=== PATIENT | male | born 1965 ===

== ENCOUNTER 2018-06-01 14:48 | Inpatient (IN) | payer OTHER, BC ==
[2018-06-01] MEDS ORDERED: Sodium Chloride 0.9% 1,000 ML IV STA (16:28)
[2018-06-01] MEDS ORDERED: Iohexol 240 (50 ml) PO STA (16:28)
[2018-06-01 16:47] LABS: BASO % 0.8 % (0.0-2.0); HEMOGLOBIN 14.1 g/dL (12.0-18.0); LYMPH # 0.9 K/uL (1.0-4.3); LYMPH % 27.3 % (20.0-40.0); MEAN CELL VOLUME 86.8 fL (80.0-94.0); MEAN CORPUSCULAR HEMOGLOBIN 29.5 pg (27.0-31.0); MEAN PLATELET VOLUME 9.8 fL (7.2-11.7); MONO # 0.4 K/uL (0.0-0.8); MONO % 10.9 % (0.0-10.0); NRBC % 0.1 % (0.0-2.0); RBC 4.8 Mil/uL (4.40-5.90); RED CELL DISTRIBUTION WIDTH 13.6 % (11.5-14.5); WHITE BLOOD COUNT 3.3 K/uL (4.8-10.8)
[2018-06-01] MEDS ORDERED: Sodium Chloride 0.9% 1,000 ML ONE (16:49)
[2018-06-01] MEDS ORDERED: Iohexol 240 (50 ml) ONE (16:49)
[2018-06-01 16:51] LABS: SQUAMOUS EPITHIAL < 1 /hpf (0-5); URINE BILIRUBIN NEGATIVE (NEGATIVE); URINE BLOOD 1+ (NEGATIVE); URINE CLARITY Clear (Clear); URINE COLOR Yellow (YELLOW); URINE GLUCOSE (UA) NORMAL (Normal); URINE LEUKOCYTE ESTERASE NEG Leu/uL (Negative); URINE PROTEIN 2+ mg/dL (NEGATIVE); URINE UROBILINOGEN NORMAL mg/dL (0.2-1.0)
[2018-06-01 16:56] LABS: INR 1.1
[2018-06-01] MEDS ORDERED: Iohexol 300 100 ML IJ ONE (16:57)
[2018-06-01 17:01] LABS: ALB/GLOB RATIO 1.4 (1.0-2.1); ALBUMIN 4.1 g/dL (3.5-5.0); ALT/SGPT 19 U/L (21-72); AST/SGOT 29 U/L (17-59); BLOOD UREA NITROGEN 20 mg/dL (9-20); CALCIUM 8.3 mg/dl (8.6-10.4); GFR NON-AFRICAN AMERICAN > 60; LIPASE 148 U/L (23-300)
--- NOTE | 2018-06-01 18:07 | C.PDOC ---
History Of Present Illness 52 y/o male presents to the ER complaining of LLQ abdominal pain which has been present for the past few days. Patient states that he has associated diarrhea and fever. Patient states that she was evaluated by her PMD . Dr. Pretty referred her to the ER. Denies having nausea, vomiting, dysuria and hematuria. Time Seen by Provider: 06/01/18 15:52 Chief Complaint (Nursing): Fever History Per: Patient History/Exam Limitations: no limitations Onset/Duration Of Symptoms: Days Current Symptoms Are (Timing): Still Present Severity: Moderate Past Medical History Reviewed: Historical Data, Nursing Documentation, Vital Signs Vital Signs: Last Vital Signs Temp 98.3 F 06/01/18 17:33 Pulse 92 H 06/01/18 17:33 Resp 18 06/01/18 17:33 BP 118/76 06/01/18 17:33 Pulse Ox 97 06/01/18 17:33 - Medical History PMH: Gastritis, Hypercholesterolemia Other Surgeries: Hx of surgeries Family History: States: No Known Family Hx - Social History Hx Alcohol Use: Yes Hx Substance Use: No - Immunization History Hx Tetanus Toxoid Vaccination: No Hx Influenza Vaccination: No Hx Pneumococcal Vaccination: No Review Of Systems Except As Marked, All Systems Reviewed And Found Negative. Constitutional: Positive for: Fever. Negative for: Chills Gastrointestinal: Positive for: Abdominal Pain, Diarrhea. Negative for: Nausea, Vomiting Physical Exam - Physical Exam Appears: Non-toxic, No Acute Distress Skin: Normal Color, Warm, Dry Head: Atraumatic, Normacephalic Eye(s): bilateral: Normal Inspection Nose: Normal Oral Mucosa: Moist Neck: Supple Chest: Symmetrical Cardiovascular: Rhythm Regular Respiratory: Normal Breath Sounds, No Rales, No Rhonchi, No Wheezing Gastrointestinal/Abdominal: Soft, Tenderness (LLQ tenderness, mild RUQ tenderness), No Guarding, No Rebound Neurological/Psych: Oriented x3, Normal Speech ED Course And Treatment - Laboratory Results Result Diagrams: 06/01/18 16:43 06/01/18 16:43 Lab Results: PT 12.0 SECONDS (9.7-12.2) 06/01/18 16:43 INR 1.1 06/01/18 16:43 APTT 29 SECONDS (21-34) 06/01/18 16:43 Total Bilirubin 0.6 mg/dL (0.2-1.3) 06/01/18 16:43 AST 29 U/L (17-59) 06/01/18 16:43 ALT 19 U/L (21-72) L 06/01/18 16:43 Alkaline Phosphatase 55 U/L (38-126) 06/01/18 16:43 Total Protein 7.1 g/dL (6.3-8.3) 06/01/18 16:43 Albumin 4.1 g/dL (3.5-5.0) 06/01/18 16:43 Globulin 3.0 gm/dL (2.2-3.9) 06/01/18 16:43 Albumin/Globulin Ratio 1.4 (1.0-2.1) 06/01/18 16:43 Lipase 148 U/L (23-300) 06/01/18 16:43 Urine Color Yellow (YELLOW) 06/01/18 16:43 Urine Clarity Clear (Clear) 06/01/18 16:43 Urine pH 5.0 (5.0-8.0) 06/01/18 16:43 Ur Specific [place] 1.030 (1.003-1.030) 06/01/18 16:43 Urine Protein 2+ mg/dL (NEGATIVE) H 06/01/18 16:43 Urine Glucose (UA) Normal mg/dL (Normal) 06/01/18 16:43 Urine Ketones Trace mg/dL (NEGATIVE) 06/01/18 16:43 Urine Blood 1+ (NEGATIVE) H 06/01/18 16:43 Urine Nitrate Negative (NEGATIVE) 06/01/18 16:43 Urine Bilirubin Negative (NEGATIVE) 06/01/18 16:43 Urine Urobilinogen Normal mg/dL (0.2-1.0) 06/01/18 16:43 Ur Leukocyte Esterase Neg Alexus/uL (Negative) 06/01/18 16:43 Urine WBC (Auto) 1 /hpf (0-5) 06/01/18 16:43 Urine RBC (Auto) 1 /hpf (0-3) 06/01/18 16:43 Ur Squamous Epith Cells < 1 /hpf (0-5) 06/01/18 16:43 O2 Sat by Pulse Oximetry: 97 (RA) Pulse Ox Interpretation: Normal - CT Scan/US CT abdomen/pelvis Other Rad Studies (CT/US): Read By Radiologist, Radiology Report Reviewed CT/US Interpretation: Accession No. : [id number]. Patient Name / ID : FREDRICK YEE / [id number]. Exam Date : 06/01/2018 18:02:12 ( Approved ). Study Comment : Sex / Age : M / 52Y. Creator : Mary Gimenez MD. Dictator : Mary Gimenez MD. Field Laboratory Operator : Van Cdl Driver : Mary Gimenez MD. Approver2 : Report Date : 06/01/2018 18:36:18. My Comment : . This report is currently processing and HAS NOT BEEN OFFICIALLY SIGNED BY THE PHYSICIAN - ESTIMATED TIME OF APPROVAL IS 06/01/2018 18:41. PROCEDURE: CT Abdomen and Pelvis with oral and IV contrast. HISTORY: LLQ abd pain, fever, N/V/D. COMPARISON: None available. TECHNIQUE: Contiguous axial images of the abdomen and pelvis. Oral and IV contrast was administered. Coronal and Sagittal reformats generated and reviewed. Contrast dose: 100 mL Omnipaque 300 IV. Radiation dose: Total exam DLP = 1027.41 mGy-cm. This CT exam was performed using one or more of the following dose reduction techniques: Automated exposure control, adjustment of the mA and/or kV according to patient size, and/or use of iterative reconstruction technique. FINDINGS: LOWER THORAX: Bibasilar atelectasis. No visible pleural effusion or pneumothorax. There are two 3 mm right middle lobe nodules. LIVER: Unremarkable. No gross lesion or ductal dilatation. GAL LBLADDER AND BILE DUCTS: Unremarkable. PANCREAS: Unremarkable. SPLEEN: Unremarkable. ADRENALS: Unremarkable. KIDNEYS AND URETERS: The kidneys enhance symmetrically. No hydronephrosis or obstructing renal calculus. BLADDER: The urinary bladder appears unremarkable. REPRODUCTIVE: Unremark able. APPENDIX: The appendix appears within normal limits of caliber. Contrast and air noted within the appendiceal lumen. No secondary signs of acute appendicitis. BOWEL: The stomach is nondistended. Severe diffuse colonic wall thickening appears consistent with hutchinson colitis. No evidence of bowel obstruction. PERITONEUM: Small pelvic free fluid. No definite free air. LYMPH NODES: No bulky lymphadenopathy identified. VASCULATURE: No aortic aneurysm. No atherosclerotic calcification or mural plaque present. BONES: Mild degenerative changes. OTHER FINDINGS: Small fat containing umbilical hernia. IMPRESSION: Severe diffuse colonic wall thickening appears consistent with hutchinson colitis. Small pelvic free fluid. There are two 3 mm right middle lobe pulmonary nodules. According to the 2017 Fleischner criteria, the patient is low risk, no routine follow-up is recommended. If the patient is high risk, and optional CT at 12 months is recommended. Progress Note: Labs, UA, and CT- Abd & Pelv. have been ordered. Patient treated with Protonix IV, Zofran IV, and IV Fluids. CT is positive for hutchinson colitis. Cipro and Flagyl IV started. Case was d/w Merlin who covers for pt's PMD accepted patient to [facility] for an admission. Disposition - Disposition Disposition: HOSPITALIZED Disposition Time: 19:00 Condition: FAIR Forms: griddig (Welsh) - Clinical Impression Clinical Impression: Pancolitis - PA / CARGO ROUTER / Resident Statement MD/DO has reviewed & agrees with the documentation as recorded. - Scribe Statement The provider has reviewed the documentation as recorded by the Scribe Valeriano Horner Provider Attestation All medical record entries made by the Scribe were at my direction and personally dictated by me. I have reviewed the chart and agree that the record accurately reflects my personal performance of the history, physical exam, medical decision making, and the department course for this patient. I have also personally directed, reviewed, and agree with the discharge instructions and disposition. Decision To Admit - Pt Status Changed To: Hospital Disposition Of: Inpatient - Admit Certification Admit to Inpatient:: After my assessment, the patient will require hospitalization for at least two midnights. This is because of the severity of symptoms shown, intensity of services needed, and/or the medical risk in this patient being treated as an outpatient. - InPatient: Physician Admission Certification:: Patient will need more than 2 days of IV antibiotics - . Bed Request Type: Regular Admitting Physician: Dot Oates Patient Diagnosis: Pancolitis
--- NOTE | 2018-06-01 18:39 | CT ---
PROCEDURE: CT Abdomen and Pelvis with oral and IV contrast. HISTORY: LLQ abd pain, fever, N/V/D COMPARISON: None available TECHNIQUE: Contiguous axial images of the abdomen and pelvis. Oral and IV contrast was administered. Coronal and Sagittal reformats generated and reviewed. Contrast dose: 100 mL Omnipaque 300 IV Radiation dose: Total exam DLP = 1027.41 mGy-cm. This CT exam was performed using one or more of the following dose reduction techniques: Automated exposure control, adjustment of the mA and/or kV according to patient size, and/or use of iterative reconstruction technique. FINDINGS: LOWER THORAX: Bibasilar atelectasis. No visible pleural effusion or pneumothorax. There are two 3 mm right middle lobe nodules LIVER: Unremarkable. No gross lesion or ductal dilatation. GALLBLADDER AND BILE DUCTS: Unremarkable. PANCREAS: Unremarkable. SPLEEN: Unremarkable. ADRENALS: Unremarkable. KIDNEYS AND URETERS: The kidneys enhance symmetrically. No hydronephrosis or obstructing renal calculus. BLADDER: The urinary bladder appears unremarkable. REPRODUCTIVE: Unremarkable. APPENDIX: The appendix appears within normal limits of caliber. Contrast and air noted within the appendiceal lumen. No secondary signs of acute appendicitis. BOWEL: The stomach is nondistended. Severe diffuse colonic wall thickening appears consistent with hutchinson colitis. No evidence of bowel obstruction. PERITONEUM: Small pelvic free fluid. No definite free air. LYMPH NODES: No bulky lymphadenopathy identified. VASCULATURE: No aortic aneurysm. No atherosclerotic calcification or mural plaque present. BONES: Mild degenerative changes. OTHER FINDINGS: Small fat containing umbilical hernia. IMPRESSION: Severe diffuse colonic wall thickening appears consistent with hutchinson colitis. Small pelvic free fluid. There are two 3 mm right middle lobe pulmonary nodules. According to the 2017 Fleischner criteria, the patient is low risk, no routine follow-up is recommended. If the patient is high risk, and optional CT at 12 months is recommended.
[2018-06-01] MEDS ORDERED: Ciprofloxacin 400mg/200ml D5W 400 MG/200 ML BAG IV STA (18:47)
[2018-06-01] MEDS ORDERED: metroNIDAZOLE IV 500 mg/100 ml 500 MG/100 ML BAG IV SCH (19:00)
[2018-06-01 20:10] VITALS: RESP 20
--- NOTE | 2018-06-01 20:35 | CP.PCM.HP ---
Past Patient History - Past Social History Smoking Status: Never Smoked - CARDIAC Hx Hypercholesterolemia: Yes - ENDOCRINE/METABOLIC Hx Endocrine Disorders: Yes Hx Diabetes Mellitus Type 2: Yes - GASTROINTESTINAL Hx Gastritis: Yes - PSYCHIATRIC Hx Substance Use: No - SURGICAL HISTORY Hx Surgeries: Yes Other/Comment: HEMORRHOIDECTOMY Meds Allergies/Adverse Reactions: Allergies Allergy/AdvReac Type Severity Reaction Status Date / Time No Known Allergies Allergy Verified 06/01/18 14:59 Results - Vital Signs Recent Vital Signs: Last Vital Signs Temp 98.3 F 06/01/18 20:09 Pulse 88 06/01/18 20:09 Resp 20 06/01/18 20:09 BP 127/81 06/01/18 20:09 Pulse Ox 96 06/01/18 20:09 - Labs Result Diagrams: 06/01/18 16:43 06/01/18 16:43 Labs: Laboratory Results - last 24 hr 06/01/18 06/01/18 06/01/18 16:43 16:43 16:43 WBC 3.3 L RBC 4.80 Hgb 14.1 Hct 41.6 MCV 86.8 MCH 29.5 MCHC 34.0 RDW 13.6 Plt Count 101 L MPV 9.8 Neut % (Auto) 61.0 Lymph % (Auto) 27.3 Coles % (Auto) 10.9 H Eos % (Auto) 0.0 Baso % (Auto) 0.8 Neut # (Auto) 2.0 Lymph # (Auto) 0.9 L [place]es # (Auto) 0.4 Eos # (Auto) 0.0 Baso # (Auto) 0.0 Differential Comment PT 12.0 INR 1.1 APTT 29 Sodium Potassium Chloride Carbon Dioxide Anion Gap BUN Creatinine Est GFR ( Amer) Est GFR (Non-Af Amer) Random Glucose Calcium Total Bilirubin AST ALT Alkaline Phosphatase Total Protein Albumin Globulin Albumin/Globulin Ratio Lipase Urine Color Yellow Urine Clarity Clear Urine pH 5.0 Ur Specific [place] 1.030 Urine Protein 2+ H Urine Glucose (UA) Normal Urine Ketones Trace Urine Blood 1+ H Urine Nitrate Negative Urine Bilirubin Negative Urine Urobilinogen Normal Ur Leukocyte Esterase Neg Urine WBC (Auto) 1 Urine RBC (Auto) 1 Ur Squamous Epith Cells < 1 06/01/18 16:43 WBC RBC Hgb Hct MCV MCH MCHC RDW Plt Count MPV Neut % (Auto) Lymph % (Auto) [place] % (Auto) Eos % (Auto) Baso % (Auto) Neut # (Auto) Lymph # (Auto) [place]es # (Auto) Eos # (Auto) Baso # (Auto) Differential Comment PT INR APTT Sodium 136 Potassium 3.3 L Chloride 97 L Carbon Dioxide 27 Anion Gap 14 BUN 20 Creatinine 0.7 L Est GFR ( Amer) > 60 Est GFR (Non-Af Amer) > 60 Random Glucose 209 H Calcium 8.3 L Total Bilirubin 0.6 AST 29 ALT 19 L Alkaline Phosphatase 55 Total Protein 7.1 Albumin 4.1 Globulin 3.0 Albumin/Globulin Ratio 1.4 Lipase 148 Urine Color Urine Clarity Urine pH Ur Specific [place] Urine Protein Urine Glucose (UA) Urine Ketones Urine Blood Urine Nitrate Urine Bilirubin Urine Urobilinogen Ur Leukocyte Esterase Urine WBC (Auto) Urine RBC (Auto) Ur Squamous Epith Cells Assessment & Plan - Assessment and Plan (Free Text) Plan: ID consult GI consult IV metronidazole IV Cipro IV Protonix Fingerstick As ordered ivfluid
[2018-06-01] MEDS ORDERED: Ciprofloxacin 200mg/100ml D5W 100 ML IVPB SCH (20:45)
[2018-06-01] MEDS: Sodium Chloride 0.9% 1,000 ML IV SCH (21:48)
[2018-06-02] MEDS: Sodium Chloride 0.9% 1,000 ML IV SCH ×4 (06:25→21:55)
[2018-06-02] MEDS: Potassium Chloride 20 mEq ER Tab PO SCH (07:56)
--- NOTE | 2018-06-02 08:30 | CP.PCM.CON ---
<Yonis Whatley - Last Filed: 06/02/18 08:27> History of Present Illness - History of Present Illness History of Present Illness: GI Fellow PGY4, Consult note. Sha Jacob is a very pleasant 52M presenting with fever, abdominal pain and diarrhea. He stated the abdominal pain and fever started 4 days ago, on Thursday. He has been afebrile since admission to the hospital. The abdominal pain is diffuse, moderate, intermittent. There is no obvious relieving or triggering features. He denies eating undercooked foods, recent travel. 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 Importantly, he reports the diarrhea has been present for ~3 months. He has 5-6 BMs per day and awakes 2-3x per night to use the bathroom. The stool is black to yellow. He denies any blood. He has had ~30lb weight loss in the last 6 months. Denies related family history of inflammatory disease. Denies rash, joint pain, oral ulers, eye problems. CT and labs reviewed. Significant for pancolitis, thrombocytopenia, low WBC. He was placed on cipro/flagyl at admission. PMHx - DM, HLD, HTN, GERD PSHx - Colonoscopy in 2018, reportedly normal. EGD ~5yrs ago. FmHx -Father from suspected stomach cancer. Sister has LOCAL [employer]ER TRUCK [employer]IVER cancer. SocHx - Denies tobacco. Drinks alcohol once per week. . 12pt ROS completed and negative except for above. Past Patient History - Past Medical History & Family History Past Medical History?: Yes - Past Social History Smoking Status: Never Smoked - CARDIAC Hx Hypercholesterolemia: Yes - PULMONARY Hx Respiratory Disorders: No - NEUROLOGICAL Hx Neurological Disorder: No - HEENT Hx HEENT Problems: No - RENAL Hx Chronic Kidney Disease: No Hx Dialysis: No - ENDOCRINE/METABOLIC Hx Endocrine Disorders: Yes Hx Diabetes Mellitus Type 2: Yes - HEMATOLOGICAL/ONCOLOGICAL Hx Blood Disorders: No - INTEGUMENTARY Hx Dermatological Problems: No - MUSCULOSKELETAL/RHEUMATOLOGICAL Hx Musculoskeletal Disorders: No Hx Falls: No - GASTROINTESTINAL Hx Gastrointestinal Disorders: Yes Hx Colitis: Yes Hx Gastritis: Yes - PSYCHIATRIC Hx Substance Use: No - SURGICAL HISTORY Hx Surgeries: Yes Other/Comment: HEMORRHOIDECTOMY - ANESTHESIA Hx Anesthesia: Yes Hx Anesthesia Reactions: No Hx Malignant Hyperthermia: No Has any member of the family had a problem w/ anesthesia?: No Meds Allergies/Adverse Reactions: Allergies Allergy/AdvReac Type Severity Reaction Status Date / Time No Known Allergies Allergy Verified 06/01/18 14:59 - Medications Medications: Current Medications Acetaminophen (Tylenol 325mg Tab) 650 mg PO Q8 PRN PRN Reason: Pain Last Admin: 06/01/18 22:37 Dose: 650 mg Glipizide (Glucotrol Xl) 10 mg PO DAILY [facility] Metronidazole (Flagyl) 500 mg in 100 mls @ 100 mls/hr IV STAT ROBERT; Protocol Ciprofloxacin (Cipro 200mg/100ml D5w) 100 mls @ 67 mls/hr IVPB Q12H ROBERT; Protocol Last Admin: 06/01/18 21:41 Dose: Not Given Sodium Chloride (Sodium Chloride 0.9%) 1,000 mls @ 100 mls/hr IV .Q10H [facility] Last Admin: 06/01/18 21:48 Dose: 100 mls/hr Influenza Virus Vaccine (Flucelvax Quad 3119-8721 Syr) 60 mcg IM .ONCE ONE Stop: 06/04/18 10:01 [id number] Ethyl Esters (Lovaza) 1 gm PO DAILY [facility] Pantoprazole Sodium (Protonix Inj) 40 mg IVP DAILY [facility] Pneumococcal Polyvalent Vaccine (Pneumovax 23 Vaccine) 0.5 ml IM .ONCE ONE Stop: 06/04/18 10:01 Potassium Chloride (K-Dur 20 Meq Er Tab) 40 meq PO BRK [facility] Last Admin: 06/02/18 07:56 Dose: 40 meq Physical Exam - Constitutional Appears: Non-toxic, No Acute Distress - Head Exam Head Exam: ATRAUMATIC, NORMAL INSPECTION - Eye Exam Eye Exam: EOMI, Normal appearance - ENT Exam ENT Exam: Mucous Membranes Moist, Normal Exam - Respiratory Exam Respiratory Exam: Clear to Auscultation Bilateral, NORMAL BREATHING PATTERN - Cardiovascular Exam Cardiovascular Exam: REGULAR RHYTHM, +S1, +S2 - GI/Abdominal Exam GI & Abdominal Exam: Normal Bowel Sounds, Soft, Tenderness. absent: Distended, Firm, Guarding, Organomegaly - Rectal Exam Rectal Exam: Deferred - Extremities Exam Extremities exam: Positive for: normal inspection. Negative for: pedal edema - Neurological Exam Neurological exam: Alert, CN II-XII Intact, Oriented x3 - Psychiatric Exam Psychiatric exam: Normal Affect, Normal Mood - Skin Skin Exam: Normal Color, Warm Results - Vital Signs Recent Vital Signs: Last Vital Signs Temp 98.2 F 06/02/18 07:59 Pulse 73 06/02/18 07:59 Resp 20 06/02/18 07:59 BP 114/74 06/02/18 07:59 Pulse Ox 97 06/02/18 07:59 - Labs Result Diagrams: 06/01/18 16:43 06/01/18 16:43 Labs: Laboratory Results - last 24 hr 06/01/18 06/01/18 06/01/18 16:43 16:43 16:43 WBC 3.3 L RBC 4.80 Hgb 14.1 Hct 41.6 MCV 86.8 MCH 29.5 MCHC 34.0 RDW 13.6 Plt Count 101 L MPV 9.8 Neut % (Auto) 61.0 Lymph % (Auto) 27.3 [place] % (Auto) 10.9 H Eos % (Auto) 0.0 Baso % (Auto) 0.8 Neut # (Auto) 2.0 Lymph # (Auto) 0.9 L [place] # (Auto) 0.4 Eos # (Auto) 0.0 Baso # (Auto) 0.0 Differential Comment PT 12.0 INR 1.1 APTT 29 Sodium Potassium Chloride Carbon Dioxide Anion Gap BUN Creatinine Est GFR ( Amer) Est GFR (Non-Af Amer) POC Glucose (mg/dL) Random Glucose Calcium Total Bilirubin AST ALT Alkaline Phosphatase Total Protein Albumin Globulin Albumin/Globulin Ratio Lipase Urine Color Yellow Urine Clarity Clear Urine pH 5.0 Ur Specific [place] 1.030 Urine Protein 2+ H Urine Glucose (UA) Normal Urine Ketones Trace Urine Blood 1+ H Urine Nitrate Negative Urine Bilirubin Negative Urine Urobilinogen Normal Ur Leukocyte Esterase Neg Urine WBC (Auto) 1 Urine RBC (Auto) 1 Ur Squamous Epith Cells < 1 06/01/18 06/01/18 06/02/18 16:43 21:45 07:23 WBC RBC Hgb Hct MCV MCH MCHC RDW Plt Count MPV Neut % (Auto) Lymph % (Auto) [place] % (Auto) Eos % (Auto) Baso % (Auto) Neut # (Auto) Lymph # (Auto) [place] # (Auto) Eos # (Auto) Baso # (Auto) Differential Comment PT INR APTT Sodium 136 Potassium 3.3 L Chloride 97 L Carbon Dioxide 27 Anion Gap 14 BUN 20 Creatinine 0.7 L Est GFR ( Amer) > 60 Est GFR (Non-Af Amer) > 60 POC Glucose (mg/dL) 204 H 183 H Random Glucose 209 H Calcium 8.3 L Total Bilirubin 0.6 AST 29 ALT 19 L Alkaline Phosphatase 55 Total Protein 7.1 Albumin 4.1 Globulin 3.0 Albumin/Globulin Ratio 1.4 Lipase 148 Urine Color Urine Clarity Urine pH Ur Specific [place] Urine Protein Urine Glucose (UA) Urine Ketones Urine Blood Urine Nitrate Urine Bilirubin Urine Urobilinogen Ur Leukocyte Esterase Urine WBC (Auto) Urine RBC (Auto) Ur Squamous Epith Cells Assessment & Plan - Assessment and Plan (Free Text) Assessment: #Abdominal pain #Colitis #Chronic diarrhea #Weight loss #Thrombocytopenia #GERD #HTN,HLD,DM PLAN: -CT reviewed, remarkable for significant Colitis from rectum to right colon, plus inflammation of the duodenum. -Likely infectious vs inflammatory -Change Abx to Rorcephin and flagyl. -stool culture, O/P, C. diff -obtain records from Dr. Jefferson (GI) -PPI daily -Monitor response to treatment of possible infection, if no response, may consider flex/sig to r/o IBD. Case discussed with Dr. Ferguson, see attestation. - Date & Time Date: 06/02/18 Time: 08:37 <Sid Ferguson Y - Last Filed: 06/02/18 11:12> Meds - Medications Medications: Current Medications Acetaminophen (Tylenol 325mg Tab) 650 mg PO Q8 PRN PRN Reason: Pain Last Admin: 06/01/18 22:37 Dose: 650 mg Glipizide (Glucotrol Xl) 10 mg PO DAILY [facility]ERT Last Admin: 06/02/18 09:36 Dose: 10 mg Sodium Chloride (Sodium Chloride 0.9%) 1,000 mls @ 100 mls/hr IV .Q10H [facility]ERT Last Admin: 06/02/18 10:23 Dose: 100 mls/hr Ceftriaxone Sodium 1 gm/ (Sodium Chloride) 100 mls @ 100 mls/hr IVPB Q12H ROBERT; Protocol Last Admin: 06/02/18 10:23 Dose: 100 mls/hr Influenza Virus Vaccine (Flucelvax Quad [id number] Syr) 60 mcg IM .ONCE ONE Stop: 06/04/18 10:01 [id number] Ethyl Esters (Lovaza) 1 gm PO DAILY [facility] Last Admin: 06/02/18 09:36 Dose: 1 gm Pantoprazole Sodium (Protonix Inj) 40 mg IVP DAILY [facility] Last Admin: 06/02/18 09:38 Dose: 40 mg Pneumococcal Polyvalent Vaccine (Pneumovax 23 Vaccine) 0.5 ml IM .ONCE ONE Stop: 06/04/18 10:01 Potassium Chloride (K-Dur 20 Meq Er Tab) 40 meq PO BRK [facility] Last Admin: 06/02/18 07:56 Dose: 40 meq Results - Vital Signs Recent Vital Signs: Last Vital Signs Temp 98.2 F 06/02/18 07:59 Pulse 73 06/02/18 07:59 Resp 20 06/02/18 07:59 BP 114/74 06/02/18 07:59 Pulse Ox 97 06/02/18 07:59 - Labs Result Diagrams: 06/01/18 16:43 06/01/18 16:43 Labs: Laboratory Results - last 24 hr 06/01/18 06/01/18 06/01/18 16:43 16:43 16:43 WBC 3.3 L RBC 4.80 Hgb 14.1 Hct 41.6 MCV 86.8 MCH 29.5 MCHC 34.0 RDW 13.6 Plt Count 101 L MPV 9.8 Neut % (Auto) 61.0 Lymph % (Auto) 27.3 [place] % (Auto) 10.9 H Eos % (Auto) 0.0 Baso % (Auto) 0.8 Neut # (Auto) 2.0 Lymph # (Auto) 0.9 L [place] # (Auto) 0.4 Eos # (Auto) 0.0 Baso # (Auto) 0.0 Differential Comment PT 12.0 INR 1.1 APTT 29 Sodium Potassium Chloride Carbon Dioxide Anion Gap BUN Creatinine Est GFR ( Amer) Est GFR (Non-Af Amer) POC Glucose (mg/dL) Random Glucose Calcium Total Bilirubin AST ALT Alkaline Phosphatase Total Protein Albumin Globulin Albumin/Globulin Ratio Lipase Urine Color Yellow Urine Clarity Clear Urine pH 5.0 Ur Specific [place] 1.030 Urine Protein 2+ H Urine Glucose (UA) Normal Urine Ketones Trace Urine Blood 1+ H Urine Nitrate Negative Urine Bilirubin Negative Urine Urobilinogen Normal Ur Leukocyte Esterase Neg Urine WBC (Auto) 1 Urine RBC (Auto) 1 Ur Squamous Epith Cells < 1 06/01/18 06/01/18 06/02/18 16:43 21:45 07:23 WBC RBC Hgb Hct MCV MCH MCHC RDW Plt Count MPV Neut % (Auto) Lymph % (Auto) [place] % (Auto) Eos % (Auto) Baso % (Auto) Neut # (Auto) Lymph # (Auto) [place] # (Auto) Eos # (Auto) Baso # (Auto) Differential Comment PT INR APTT Sodium 136 Potassium 3.3 L Chloride 97 L Carbon Dioxide 27 Anion Gap 14 BUN 20 Creatinine 0.7 L Est GFR ( Amer) > 60 Est GFR (Non-Af Amer) > 60 POC Glucose (mg/dL) 204 H 183 H Random Glucose 209 H Calcium 8.3 L Total Bilirubin 0.6 AST 29 ALT 19 L Alkaline Phosphatase 55 Total Protein 7.1 Albumin 4.1 Globulin 3.0 Albumin/Globulin Ratio 1.4 Lipase 148 Urine Color Urine Clarity Urine pH Ur Specific [place] Urine Protein Urine Glucose (UA) Urine Ketones Urine Blood Urine Nitrate Urine Bilirubin Urine Urobilinogen Ur Leukocyte Esterase Urine WBC (Auto) Urine RBC (Auto) Ur Squamous Epith Cells 06/02/18 10:59 WBC RBC Hgb Hct MCV MCH MCHC RDW Plt Count MPV Neut % (Auto) Lymph % (Auto) [place] % (Auto) Eos % (Auto) Baso % (Auto) Neut # (Auto) Lymph # (Auto) [place] # (Auto) Eos # (Auto) Baso # (Auto) Differential Comment PT INR APTT Sodium Potassium Chloride Carbon Dioxide Anion Gap BUN Creatinine Est GFR ( Amer) Est GFR (Non-Af Amer) POC Glucose (mg/dL) 203 H Random Glucose Calcium Total Bilirubin AST ALT Alkaline Phosphatase Total Protein Albumin Globulin Albumin/Globulin Ratio Lipase Urine Color Urine Clarity Urine pH Ur Specific [place] Urine Protein Urine Glucose (UA) Urine Ketones Urine Blood Urine Nitrate Urine Bilirubin Urine Urobilinogen Ur Leukocyte Esterase Urine WBC (Auto) Urine RBC (Auto) Ur Squamous Epith Cells Attending/Attestation - Attestation I have personally seen and examined this patient.: Yes I have fully participated in the care of the patient.: Yes I have reviewed all pertinent clinical information: Yes Notes (Text): 06/02/18 11:07 I have seen and examined patient with GI fellow. Agree with above documentation with the following additions. In brief, this is a 52 year old male with history of DM, HTN, hyperlipiemia, GERD who presents to hospital with complaint of abdominal pain, diarrhea. He notes a chronic diarrhea for the past 3 months which has gotten worse over the past 4 days. He reports bilateral lower quadrant abdominal pain radiating to umbilicus along with subjective fever and increased frequency of bowel movements. He reports 5-6 loose bowel movements per day with occasional nocturnal awakening but denies blood in stool, recent antibiotic use, travel, or sick contacts. He does report a nearly 30 pound weight loss over the past 6 months. He apparently had a colonoscopy in February [address] Jefferson which was normal as per patient. DM/HTN Hyperlipidemia GERD Abdominal pain, diarrhea - acute colitis CT imaging reviewed by me showing pancolitis of unclear etiology - Liquid diet as tolerated - Obtain stool studies (culture, O/P, c-difficile) - Continue with antibiotic therapy, though recommend changing cipro to ceftriaxone given severity of disease - Obtain colonoscopy report from Dr. Jefferson - Will continue to monitor patient clinical course
[2018-06-02] MEDS: Omega-3-Acid Ethyl Esters 1 GM Cap PO SCH (09:36)
[2018-06-02] MEDS: GlipiZIDE 10 mg SR Tab PO SCH (09:36)
--- NOTE | 2018-06-02 12:13 | CP.PCM.CON ---
History of Present Illness - History of Present Illness History of Present Illness: Sha Jacob 52M presenting with fever, abdominal pain and diarrhea for ~3 months. He has had ~30lb weight loss in the last 6 months. Denies related family history of inflammatory disease. Denies rash, joint pain, oral ulers, eye problems. CT and labs reviewed. Significant for pancolitis, thrombocytopenia, low WBC. He was placed on cipro/flagyl at admission then switched to Rocephin/ Flagyl Cultures pending from [place]- last trip 2 years ago PMHx - DM, HLD, HTN, GERD PSHx - Colonoscopy in 2018, reportedly normal. EGD ~5yrs ago. FmHx -Father from suspected stomach cancer. Sister has GUN ME[employer] cancer. SocHx - Denies tobacco. Drinks alcohol once per week. . Review of Systems - Constitutional Constitutional: As Per HPI, Anorexia, Malaise, Weight Loss - EENT Eyes: absent: As Per HPI, Blind Spots, Blurred Vision, Change in Vision, Decreased Night Vision, Diplopia, Discharge, Dry Eye, Exophthalmos, Floaters, Irritation, Itchy Eyes, Loss of Peripheral Vision, Pain, Photophobia, Requires Corrective Lenses, Sees Flashes, Spots in Vision, Tunnel Vision, Other Visual Disturbances, Loss of Vision, Other Ears: absent: As Per HPI, Decreased Hearing, Ear Discharge, Ear Pain, Tinnitus, Abnormal Hearing, Disequilibrium, Dizziness, Other Nose/Mouth/Throat: absent: As Per HPI, Epistaxis, Nasal Congestion, Nasal Discharge, Nasal Obstruction, Nasal Trauma, Nose Pain, Post Nasal Drip, Sinus Pain, Sinus Pressure, Bleeding Gums, Change in Voice, Dental Pain, Dry Mouth, Dysphagia, Halitosis, Hoarsness, Lip Swelling, Mouth Lesions, Mouth Pain, Odyno phagia, Sore Throat, Throat Swelling, Tongue Swelling, Facial Pain, Neck Pain, Neck Mass, Other - Cardiovascular Cardiovascular: absent: As Per HPI, Acrocyanosis, Chest Pain, Chest Pain at Rest, Chest Pain with Activity, Claudication, Diaphoresis, Dyspnea, Dyspnea on Exertion, Edema, Irregular Heart Rhythm, Pain Radiating to Arm/Neck/Jaw, Leg Edema, Leg Ulcers, Lightheadedness, Orthopnea, Palpitations, Paroxysmal Nocturnal Dyspnea, Pedal Edema, Radiating Pain, Rapid Heart Rate, Slow Heart Rate, Syncope, Other - Respiratory Respiratory: absent: As Per HPI, Cough, Dyspnea, Hemoptysis, Dyspnea on Exertion, Wheezing, Snoring, Stridor, Pain on Inspiration, Chest Congestion, Excessive Mucous Production, Change in Mucous Color, Pain with Coughing, Other - Gastrointestinal Gastrointestinal: As Per HPI - Genitourinary Genitourinary: absent: As Per HPI, Change in Urinary Stream, Difficulty Urinating, Dysuria, Flank Pain, Hematuria, Pyuria, Nocturia, Urinary Incontinence, Urinary Frequency, Urinary Hesitance, Urinary Urgency, Voiding Freq/Small Amts, Freq UTI, Hx Renal/Bladder Calculi, Hx /Renal Surgery, Bladder Distension, Other - Musculoskeletal Musculoskeletal: absent: As Per HPI, Abnormal Gait, Arthralgias, Atrophy, Back Pain, Deformity, Joint Swelling, Limited Range of Motion, Loss of Height, Muscle Cramps, Muscle Weakness, Myalgias, Neck Pain, Numbness, Radiating Pain into Limb, Stiffness, Tingling, Other - Integumentary Integumentary: absent: As Per HPI, Acne, Alopecia, Bleeding Lesions, Change in Hair, Change in Nails, Change in Pigmentation, Changing Lesions, Dry Skin, Erythema, Furuncle, Hirsutism, Lesions, New Lesions, Non-Healing Lesions, Photosensitivity, Pruritus, Rash, Skin Pain, Skin Ulcer, Sores, Striae, Swelling, Unusual Bruising, Wounds, Jaundice, Other - Neurological Neurological: absent: As Per HPI, Abnormal Gait, Abnormal Hearing, Abnormal Movements, Abnormal Speech, Behavioral Changes, Burning Sensations, Confusion, Convulsions, Disequilibrium, Dizziness, Numbness, Focal Weakness, Frequent Falls, Headaches, Lack of Coordination, Loss of Vision, Memory Loss, Paresthesias, Radicular Pain, Restless Legs, Sensory Deficit, Syncope, Tingling, Tremor, Vertigo, Weakness, Other Visual Disturbances, Other - Psychiatric Psychiatric: absent: As Per HPI, Abnormal Sleep Pattern, Anhedonia, Anxiety, Auditory Hallucinations, Behavioral Changes, Change in Appetite, Change in Libido, Confusion, Depression, Difficulty Concentrating, Hallucinations, Homicidal Ideation, Hopelessness, Irritability, Memory Loss, Mood Swings, Panic Attacks, Paranoia, Suicidal Ideation, Visual Hallucinations, Tactile Hallucinations, Other - Endocrine Endocrine: absent: As Per HPI, Change in Body Appearance, Change in Libido, Cold Intolorance, Deepening of Voice, Excessive Sweating, Fatigue, Flushing, Heat Intolorance, Increase in Ring/Shoe/Hat Size, Palpitations, Polydipsia, Polyphagia, Polyuria, Other - Hematologic/Lymphatic Hematologic: absent: As Per HPI, Easy Bleeding, Easy Bruising, Lymphadenopathy, Other Past Patient History - Past Medical History & Family History Past Medical History?: Yes - Past Social History Smoking Status: Never Smoked - CARDIAC Hx Hypercholesterolemia: Yes - PULMONARY Hx Respiratory Disorders: No - NEUROLOGICAL Hx Neurological Disorder: No - HEENT Hx HEENT Problems: No - RENAL Hx Chronic Kidney Disease: No Hx Dialysis: No - ENDOCRINE/METABOLIC Hx Endocrine Disorders: Yes Hx Diabetes Mellitus Type 2: Yes - HEMATOLOGICAL/ONCOLOGICAL Hx Blood Disorders: No - INTEGUMENTARY Hx Dermatological Problems: No - MUSCULOSKELETAL/RHEUMATOLOGICAL Hx Musculoskeletal Disorders: No Hx Falls: No - GASTROINTESTINAL Hx Gastrointestinal Disorders: Yes Hx Colitis: Yes Hx Gastritis: Yes - PSYCHIATRIC Hx Substance Use: No - SURGICAL HISTORY Hx Surgeries: Yes Other/Comment: HEMORRHOIDECTOMY - ANESTHESIA Hx Anesthesia: Yes Hx Anesthesia Reactions: No Hx Malignant Hyperthermia: No Has any member of the family had a problem w/ anesthesia?: No Meds Allergies/Adverse Reactions: Allergies Allergy/AdvReac Type Severity Reaction Status Date / Time No Known Allergies Allergy Verified 06/01/18 14:59 - Medications Medications: Current Medications Acetaminophen (Tylenol 325mg Tab) 650 mg PO Q8 PRN PRN Reason: Pain Last Admin: 06/01/18 22:37 Dose: 650 mg Glipizide (Glucotrol Xl) 10 mg PO DAILY [facility] Last Admin: 06/02/18 09:36 Dose: 10 mg Sodium Chloride (Sodium Chloride 0.9%) 1,000 mls @ 100 mls/hr IV .Q10H [facility]ERT Last Admin: 06/02/18 10:23 Dose: 100 mls/hr Ceftriaxone Sodium 1 gm/ (Sodium Chloride) 100 mls @ 100 mls/hr IVPB Q12H [facility]; Protocol Last Admin: 06/02/18 10:23 Dose: 100 mls/hr Influenza Virus Vaccine (Flucelvax Quad [id number] Syr) 60 mcg IM .ONCE ONE Stop: 06/04/18 10:01 [id number] Ethyl Esters (Lovaza) 1 gm PO DAILY [facility] Last Admin: 06/02/18 09:36 Dose: 1 gm Pantoprazole Sodium (Protonix Inj) 40 mg IVP DAILY [facility] Last Admin: 06/02/18 09:38 Dose: 40 mg Pneumococcal Polyvalent Vaccine (Pneumovax 23 Vaccine) 0.5 ml IM .ONCE ONE Stop: 06/04/18 10:01 Potassium Chloride (K-Dur 20 Meq Er Tab) 40 meq PO BRK [facility] Last Admin: 06/02/18 07:56 Dose: 40 meq Physical Exam - Constitutional Appears: Non-toxic, Chronically Ill - Head Exam Head Exam: ATRAUMATIC, NORMAL INSPECTION, NORMOCEPHALIC - Eye Exam Eye Exam: PERRL. absent: Scleral icterus - ENT Exam ENT Exam: Mucous Membranes Dry, Normal External Ear Exam - Neck Exam Neck exam: Negative for: Lymphadenopathy - Respiratory Exam Respiratory Exam: Decreased Breath Sounds, Clear to Auscultation Bilateral - Cardiovascular Exam Cardiovascular Exam: REGULAR RHYTHM, +S1, +S2 - GI/Abdominal Exam GI & Abdominal Exam: Diminished Bowel Sounds, Distended, Soft. absent: Guarding, Rebound, Rigid, Tenderness - Rectal Exam Rectal Exam: Deferred - Exam Exam: NORMAL INSPECTION - Extremities Exam Extremities exam: Positive for: pedal pulses present. Negative for: calf tenderness, pedal edema, tenderness - Back Exam Back exam: absent: CVA tenderness (L), CVA tenderness (R) - Neurological Exam Neurological exam: Alert, CN II-XII Intact, Oriented x3, Reflexes Normal - Psychiatric Exam Psychiatric exam: Normal Mood - Skin Skin Exam: Dry, Intact Results - Vital Signs Recent Vital Signs: Last Vital Signs Temp 98.2 F 06/02/18 07:59 Pulse 73 06/02/18 07:59 Resp 20 06/02/18 07:59 BP 114/74 06/02/18 07:59 Pulse Ox 97 06/02/18 07:59 - Labs Result Diagrams: 06/01/18 16:43 06/01/18 16:43 Labs: Laboratory Results - last 24 hr 06/01/18 06/01/18 06/01/18 16:43 16:43 16:43 WBC 3.3 L RBC 4.80 Hgb 14.1 Hct 41.6 MCV 86.8 MCH 29.5 MCHC 34.0 RDW 13.6 Plt Count 101 L MPV 9.8 Neut % (Auto) 61.0 Lymph % (Auto) 27.3 [place] % (Auto) 10.9 H Eos % (Auto) 0.0 Baso % (Auto) 0.8 Neut # (Auto) 2.0 Lymph # (Auto) 0.9 L [place] # (Auto) 0.4 Eos # (Auto) 0.0 Baso # (Auto) 0.0 Differential Comment PT 12.0 INR 1.1 APTT 29 Sodium Potassium Chloride Carbon Dioxide Anion Gap BUN Creatinine Est GFR ( Amer) Est GFR (Non-Af Amer) POC Glucose (mg/dL) Random Glucose Calcium Total Bilirubin AST ALT Alkaline Phosphatase Total Protein Albumin Globulin Albumin/Globulin Ratio Lipase Urine Color Yellow Urine Clarity Clear Urine pH 5.0 Ur Specific [place] 1.030 Urine Protein 2+ H Urine Glucose (UA) Normal Urine Ketones Trace Urine Blood 1+ H Urine Nitrate Negative Urine Bilirubin Negative Urine Urobilinogen Normal Ur Leukocyte Esterase Neg Urine WBC (Auto) 1 Urine RBC (Auto) 1 Ur Squamous Epith Cells < 1 06/01/18 06/01/18 06/02/18 16:43 21:45 07:23 WBC RBC Hgb Hct MCV MCH MCHC RDW Plt Count MPV Neut % (Auto) Lymph % (Auto) [place] % (Auto) Eos % (Auto) Baso % (Auto) Neut # (Auto) Lymph # (Auto) [place] # (Auto) Eos # (Auto) Baso # (Auto) Differential Comment PT INR APTT Sodium 136 Potassium 3.3 L Chloride 97 L Carbon Dioxide 27 Anion Gap 14 BUN 20 Creatinine 0.7 L Est GFR ( Amer) > 60 Est GFR (Non-Af Amer) > 60 POC Glucose (mg/dL) 204 H 183 H Random Glucose 209 H Calcium 8.3 L Total Bilirubin 0.6 AST 29 ALT 19 L Alkaline Phosphatase 55 Total Protein 7.1 Albumin 4.1 Globulin 3.0 Albumin/Globulin Ratio 1.4 Lipase 148 Urine Color Urine Clarity Urine pH Ur Specific [place] Urine Protein Urine Glucose (UA) Urine Ketones Urine Blood Urine Nitrate Urine Bilirubin Urine Urobilinogen Ur Leukocyte Esterase Urine WBC (Auto) Urine RBC (Auto) Ur Squamous Epith Cells 06/02/18 10:59 WBC RBC Hgb Hct MCV MCH MCHC RDW Plt Count MPV Neut % (Auto) Lymph % (Auto) [place] % (Auto) Eos % (Auto) Baso % (Auto) Neut # (Auto) Lymph # (Auto) [place] # (Auto) Eos # (Auto) Baso # (Auto) Differential Comment PT INR APTT Sodium Potassium Chloride Carbon Dioxide Anion Gap BUN Creatinine Est GFR ( Amer) Est GFR (Non-Af Amer) POC Glucose (mg/dL) 203 H Random Glucose Calcium Total Bilirubin AST ALT Alkaline Phosphatase Total Protein Albumin Globulin Albumin/Globulin Ratio Lipase Urine Color Urine Clarity Urine pH Ur Specific [place] Urine Protein Urine Glucose (UA) Urine Ketones Urine Blood Urine Nitrate Urine Bilirubin Urine Urobilinogen Ur Leukocyte Esterase Urine WBC (Auto) Urine RBC (Auto) Ur Squamous Epith Cells Assessment & Plan (1) Pancolitis Status: Acute - Assessment and Plan (Free Text) Assessment: + CT evidence of colitis- infectious vs inflamattory malignancy 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
[2018-06-02 15:02] LABS: HEPATITIS C ANTIBODY NEGATIVE (NEGATIVE)
--- NOTE | 2018-06-02 15:02 | CP.PCM.PN ---
Subjective - Date & Time of Evaluation Date of Evaluation: 06/02/18 Time of Evaluation: 15:02 - Subjective Subjective: PGY2 Medicine Note for Dr. Flor Oates Patient was seen and examined this morning at bedside. Patient was admitted overnight for pancolitis. He is still experiencing abdominal pain but is slightly improved this morning but he is still slightly nauseous. He is currently tolerating a clear liquid diet. Denies fevers, chills, vomiting, chest pain, shortness of breath, diarrhea or constipation. Objective - Vital Signs/Intake and Output Vital Signs (last 24 hours): Temp Pulse Resp BP Pulse Ox 98.2 F 73 20 114/74 97 06/02/18 07:59 06/02/18 07:59 06/02/18 07:59 06/02/18 07:59 06/02/18 07:59 Intake and Output: 06/02/18 06/02/18 06:59 18:59 Intake Total 300 800 Balance 300 800 - Medications Medications: Current Medications Acetaminophen (Tylenol 325mg Tab) 650 mg PO Q8 PRN PRN Reason: Pain Last Admin: 06/01/18 22:37 Dose: 650 mg Glipizide (Glucotrol Xl) 10 mg PO DAILY [facility] Last Admin: 06/02/18 09:36 Dose: 10 mg Sodium Chloride (Sodium Chloride 0.9%) 1,000 mls @ 100 mls/hr IV .Q10H [facility] Last Admin: 06/02/18 10:23 Dose: 100 mls/hr Ceftriaxone Sodium 1 gm/ (Sodium Chloride) 100 mls @ 100 mls/hr IVPB Q12H [facility]; Protocol Last Admin: 06/02/18 10:23 Dose: 100 mls/hr Influenza Virus Vaccine (Flucelvax Quad 3494-8712 Syr) 60 mcg IM .ONCE ONE Stop: 06/04/18 10:01 Fmzas-4-Athe Ethyl Esters (Lovaza) 1 gm PO DAILY [facility] Last Admin: 06/02/18 09:36 Dose: 1 gm Pantoprazole Sodium (Protonix Inj) 40 mg IVP DAILY [facility] Last Admin: 06/02/18 09:38 Dose: 40 mg Pneumococcal Polyvalent Vaccine (Pneumovax 23 Vaccine) 0.5 ml IM .ONCE ONE Stop: 06/04/18 10:01 Potassium Chloride (K-Dur 20 Meq Er Tab) 40 meq PO BRK [facility] Last Admin: 06/02/18 07:56 Dose: 40 meq - Labs Labs: 06/01/18 16:43 06/01/18 16:43 PT 12.0 SECONDS (9.7-12.2) 06/01/18 16:43 INR 1.1 06/01/18 16:43 APTT 29 SECONDS (21-34) 06/01/18 16:43 - Constitutional Appears: Non-toxic, No Acute Distress - Head Exam Head Exam: NORMAL INSPECTION - Eye Exam Eye Exam: Normal appearance. absent: Scleral icterus - ENT Exam ENT Exam: Mucous Membranes Moist - Respiratory Exam Respiratory Exam: Clear to Ausculation Bilateral, NORMAL BREATHING PATTERN. absent: Accessory Muscle Use, Rales, Rhonchi, Wheezes, Respiratory Distress - Cardiovascular Exam Cardiovascular Exam: REGULAR RHYTHM, +S1 - GI/Abdominal Exam GI & Abdominal Exam: Guarding, Soft, Tenderness (lower abdomen). absent: Distended, Firm, Rigid - Extremities Exam Extremities Exam: absent: Calf Tenderness, Pedal Edema - Neurological Exam Neurological Exam: Alert, Awake, Oriented x3 - Psychiatric Exam Psychiatric exam: Normal Affect, Normal Mood - Skin Skin Exam: Dry, Warm Assessment and Plan - Assessment and Plan (Free Text) Plan: Pancolitis GI consulted, Dr. Ferguson - f/u recs * liquid diet as tolerated * obtain stool studies * continue abx, recommend change of cipro to ceftriaxone * obtain colonoscopy report from Dr. Jefferson Abd and pelvic CT: * Severe diffuse colonic wall thickening appears consistent with hutchinson colitis. * Small pelvic free fluid * There are two 3mm right middle lobe pulmonary nodules. According to the 2017 Fleischner criteria, the patient is low risk, no routine follow up is recommended. If the patient is high risk, an optional CT at 12 months is recommended. afebrile leukopenia Hepatitis Panel - negative HIV negative C. Diff negative stool studies pending clear liquid diet Medications * Ceftriaxone 1gm IVPB q12h (started on 06/02) * Metronidazole 500mg IVPB q8h (started on 06/02) * NS @100mL/hr Diabetes Continue home medication * Glipizide 10mg PO daily Prophylactic Care SCDs Protonix 40mg IVP daily All medical management per Dr. Flor Oates
[2018-06-02 15:30] LABS: HEPATITIS B SURFACE AG Negative (NEGATIVE)
[2018-06-02 15:36] LABS: HEPATITIS A IGM NEGATIVE (NEGATIVE); HEPATITIS B CORE AB NEGATIVE (NEGATIVE)
[2018-06-02] MEDS: metroNIDAZOLE IV 500 mg/100 ml 500 MG/100 ML BAG IVPB SCH (17:30)
--- NOTE | 2018-06-02 20:15 | CP.PCM.PN ---
Subjective - Date & Time of Evaluation Date of Evaluation: 06/02/18 Time of Evaluation: 08:15 - Subjective Subjective: clinically same Objective - Vital Signs/Intake and Output Vital Signs (last 24 hours): Temp Pulse Resp BP Pulse Ox 98.6 F 75 20 119/77 96 06/02/18 16:00 06/02/18 16:00 06/02/18 16:00 06/02/18 16:00 06/02/18 16:00 Intake and Output: 06/02/18 06/03/18 18:59 06:59 Intake Total 800 Balance 800 - Medications Medications: Current Medications Acetaminophen (Tylenol 325mg Tab) 650 mg PO Q8 PRN PRN Reason: Pain Last Admin: 06/01/18 22:37 Dose: 650 mg Glipizide (Glucotrol Xl) 10 mg PO DAILY [facility] Last Admin: 06/02/18 09:36 Dose: 10 mg Sodium Chloride (Sodium Chloride 0.9%) 1,000 mls @ 100 mls/hr IV .Q10H [facility] Last Admin: 06/02/18 16:45 Dose: Not Given Ceftriaxone Sodium 1 gm/ (Sodium Chloride) 100 mls @ 100 mls/hr IVPB Q12H [facility]; Protocol Last Admin: 06/02/18 10:23 Dose: 100 mls/hr Metronidazole (Flagyl) 500 mg in 100 mls @ 100 mls/hr IVPB Q8H [facility]; Protocol Last Admin: 06/02/18 17:30 Dose: 100 mls/hr Influenza Virus Vaccine (Flucelvax Quad 2872-7899 Syr) 60 mcg IM .ONCE ONE Stop: 06/04/18 10:01 Zceny-1-Luub Ethyl Esters (Lovaza) 1 gm PO DAILY [facility] Last Admin: 06/02/18 09:36 Dose: 1 gm Pantoprazole Sodium (Protonix Inj) 40 mg IVP DAILY [facility] Last Admin: 06/02/18 09:38 Dose: 40 mg Pneumococcal Polyvalent Vaccine (Pneumovax 23 Vaccine) 0.5 ml IM .ONCE ONE Stop: 06/04/18 10:01 Potassium Chloride (K-Dur 20 Meq Er Tab) 40 meq PO BRK [facility] Last Admin: 06/02/18 07:56 Dose: 40 meq - Labs Labs: 06/01/18 16:43 06/01/18 16:43 PT 12.0 SECONDS (9.7-12.2) 06/01/18 16:43 INR 1.1 06/01/18 16:43 APTT 29 SECONDS (21-34) 06/01/18 16:43 - Constitutional Appears: Well - Head Exam Head Exam: ATRAUMATIC, NORMAL INSPECTION, NORMOCEPHALIC - Eye Exam Eye Exam: EOMI, Normal appearance, PERRL Pupil Exam: NORMAL ACCOMODATION, PERRL - ENT Exam ENT Exam: Mucous Membranes Moist, Normal Exam - Neck Exam Neck Exam: Full ROM, Normal Inspection. absent: Lymphadenopathy - Respiratory Exam Respiratory Exam: Decreased Breath Sounds - Cardiovascular Exam Cardiovascular Exam: REGULAR RHYTHM, +S1, +S2 - GI/Abdominal Exam GI & Abdominal Exam: Soft, Diminished Bowel Sounds - Rectal Exam Rectal Exam: Deferred
[2018-06-03] MEDS: metroNIDAZOLE IV 500 mg/100 ml 500 MG/100 ML BAG IVPB SCH ×3 (00:29→16:17)
[2018-06-03] MEDS: Sodium Chloride 0.9% 1,000 ML IV SCH ×4 (02:25→23:25)
[2018-06-03] MEDS: Potassium Chloride 20 mEq ER Tab PO SCH (08:04)
--- NOTE | 2018-06-03 08:12 | CP.PCM.CON ---
History of Present Illness - History of Present Illness History of Present Illness: GI Fellow PGY4, Progress note. Patient reports improved abdominal pain. His bowel movement have not improved. He states he is hungry and tolerating a CLD. No fevers. HDS. I reviewed Dr. Jefferson reports. He had a colonoscopy in 2017 with a tubular adenoma. 5pt ROS completed and negative except for above. Past Patient History - Past Medical History & Family History Past Medical History?: Yes - Past Social History Smoking Status: Never Smoked - CARDIAC Hx Hypercholesterolemia: Yes - PULMONARY Hx Respiratory Disorders: No - NEUROLOGICAL Hx Neurological Disorder: No - HEENT Hx HEENT Problems: No - RENAL Hx Chronic Kidney Disease: No Hx Dialysis: No - ENDOCRINE/METABOLIC Hx Endocrine Disorders: Yes Hx Diabetes Mellitus Type 2: Yes - HEMATOLOGICAL/ONCOLOGICAL Hx Blood Disorders: No - INTEGUMENTARY Hx Dermatological Problems: No - MUSCULOSKELETAL/RHEUMATOLOGICAL Hx Musculoskeletal Disorders: No Hx Falls: No - GASTROINTESTINAL Hx Gastrointestinal Disorders: Yes Hx Colitis: Yes Hx Gastritis: Yes - PSYCHIATRIC Hx Substance Use: No - SURGICAL HISTORY Hx Surgeries: Yes Other/Comment: HEMORRHOIDECTOMY - ANESTHESIA Hx Anesthesia: Yes Hx Anesthesia Reactions: No Hx Malignant Hyperthermia: No Has any member of the family had a problem w/ anesthesia?: No Meds Allergies/Adverse Reactions: Allergies Allergy/AdvReac Type Severity Reaction Status Date / Time No Known Allergies Allergy Verified 06/01/18 14:59 - Medications Medications: Current Medications Acetaminophen (Tylenol 325mg Tab) 650 mg PO Q8 PRN PRN Reason: Pain Last Admin: 06/01/18 22:37 Dose: 650 mg Glipizide (Glucotrol Xl) 10 mg PO DAILY [facility] Last Admin: 06/02/18 09:36 Dose: 10 mg Sodium Chloride (Sodium Chloride 0.9%) 1,000 mls @ 100 mls/hr IV .Q10H [facility] Last Admin: 06/02/18 21:55 Dose: 100 mls/hr Ceftriaxone Sodium 1 gm/ (Sodium Chloride) 100 mls @ 100 mls/hr IVPB Q12H [facility]; Protocol Last Admin: 06/02/18 21:17 Dose: 100 mls/hr Metronidazole (Flagyl) 500 mg in 100 mls @ 100 mls/hr IVPB Q8H [facility]; Protocol Last Admin: 06/03/18 08:06 Dose: 100 mls/hr Influenza Virus Vaccine (Flucelvax Quad 2318-8416 Syr) 60 mcg IM .ONCE ONE Stop: 06/04/18 10:01 Drndq-3-Mkxj Ethyl Esters (Lovaza) 1 gm PO DAILY [facility] Last Admin: 06/02/18 09:36 Dose: 1 gm Pantoprazole Sodium (Protonix Inj) 40 mg IVP DAILY [facility] Last Admin: 06/02/18 09:38 Dose: 40 mg Pneumococcal Polyvalent Vaccine (Pneumovax 23 Vaccine) 0.5 ml IM .ONCE ONE Stop: 06/04/18 10:01 Potassium Chloride (K-Dur 20 Meq Er Tab) 40 meq PO BRK [facility] Last Admin: 06/03/18 08:04 Dose: 40 meq Physical Exam - Constitutional Appears: Non-toxic, No Acute Distress - Eye Exam Eye Exam: EOMI, Normal appearance - ENT Exam ENT Exam: Mucous Membranes Moist, Normal Exam - Respiratory Exam Respiratory Exam: Clear to Auscultation Bilateral, NORMAL BREATHING PATTERN - Cardiovascular Exam Cardiovascular Exam: REGULAR RHYTHM, +S1, +S2 - GI/Abdominal Exam GI & Abdominal Exam: Normal Bowel Sounds, Soft. absent: Tenderness - Extremities Exam Extremities exam: Positive for: normal inspection. Negative for: pedal edema - Neurological Exam Neurological exam: Alert, CN II-XII Intact, Oriented x3 - Psychiatric Exam Psychiatric exam: Normal Affect, Normal Mood - Skin Skin Exam: Dry, Normal Color Results - Vital Signs Recent Vital Signs: Last Vital Signs Temp 97.7 F 06/03/18 07:58 Pulse 71 06/03/18 07:58 Resp 20 06/03/18 07:58 BP 101/63 06/03/18 07:58 Pulse Ox 97 06/03/18 07:58 - Labs Result Diagrams: 06/01/18 16:43 06/01/18 16:43 Labs: Laboratory Results - last 24 hr 06/02/18 06/02/18 06/02/18 08:46 10:59 13:51 POC Glucose (mg/dL) 203 H C. difficile Ag & Toxin Negative Hepatitis A IgM Ab Hep Bs Antigen Hep B Core IgM Ab Hepatitis C Antibody HIV 1&2 Antibody Screen Negative 06/02/18 06/02/18 06/02/18 13:51 16:23 21:06 POC Glucose (mg/dL) 113 H 151 H C. difficile Ag & Toxin Hepatitis A IgM Ab Negative Hep Bs Antigen Negative Hep B Core IgM Ab Negative Hepatitis C Antibody Negative HIV 1&2 Antibody Screen 06/03/18 07:23 POC Glucose (mg/dL) 179 H C. difficile Ag & Toxin Hepatitis A IgM Ab Hep Bs Antigen Hep B Core IgM Ab Hepatitis C Antibody HIV 1&2 Antibody Screen Assessment & Plan - Date & Time Date: 06/03/18 Time: 08:16
--- NOTE | 2018-06-03 08:18 | CP.PCM.PN ---
<DomingacarlosiamYonis - Last Filed: 06/03/18 08:19> Subjective - Date & Time of Evaluation Date of Evaluation: 06/03/18 Time of Evaluation: 08:18 - Subjective Subjective: GI Fellow PGY4, Progress note. Patient reports improved abdominal pain. His bowel movement have not improved. He states he is hungry and tolerating a CLD. No fevers. HDS. I reviewed Dr. Jefferson reports. He had a colonoscopy in 2017 with a tubular adenoma. 5pt ROS completed and negative except for above. Objective - Vital Signs/Intake and Output Vital Signs (last 24 hours): Temp Pulse Resp BP Pulse Ox 97.7 F 71 20 101/63 97 06/03/18 07:58 06/03/18 07:58 06/03/18 07:58 06/03/18 07:58 06/03/18 07:58 - Medications Medications: Current Medications Acetaminophen (Tylenol 325mg Tab) 650 mg PO Q8 PRN PRN Reason: Pain Last Admin: 06/01/18 22:37 Dose: 650 mg Glipizide (Glucotrol Xl) 10 mg PO DAILY [facility] Last Admin: 06/02/18 09:36 Dose: 10 mg Sodium Chloride (Sodium Chloride 0.9%) 1,000 mls @ 100 mls/hr IV .Q10H [facility] Last Admin: 06/02/18 21:55 Dose: 100 mls/hr Ceftriaxone Sodium 1 gm/ (Sodium Chloride) 100 mls @ 100 mls/hr IVPB Q12H [facility]; Protocol Last Admin: 06/02/18 21:17 Dose: 100 mls/hr Metronidazole (Flagyl) 500 mg in 100 mls @ 100 mls/hr IVPB Q8H [facility]; Protocol Last Admin: 06/03/18 08:06 Dose: 100 mls/hr Influenza Virus Vaccine (Flucelvax Quad 3627-9983 Syr) 60 mcg IM .ONCE ONE Stop: 06/04/18 10:01 Zpqmw-2-Zdpp Ethyl Esters (Lovaza) 1 gm PO DAILY [facility] Last Admin: 06/02/18 09:36 Dose: 1 gm Pantoprazole Sodium (Protonix Inj) 40 mg IVP DAILY [facility] Last Admin: 06/02/18 09:38 Dose: 40 mg Pneumococcal Polyvalent Vaccine (Pneumovax 23 Vaccine) 0.5 ml IM .ONCE ONE Stop: 06/04/18 10:01 Potassium Chloride (K-Dur 20 Meq Er Tab) 40 meq PO BRK [facility] Last Admin: 06/03/18 08:04 Dose: 40 meq - Labs Labs: 06/01/18 16:43 06/01/18 16:43 PT 12.0 SECONDS (9.7-12.2) 06/01/18 16:43 INR 1.1 06/01/18 16:43 APTT 29 SECONDS (21-34) 06/01/18 16:43 - Constitutional Appears: Non-toxic, No Acute Distress - Head Exam Head Exam: ATRAUMATIC, NORMAL INSPECTION - Eye Exam Eye Exam: EOMI, Normal appearance - Respiratory Exam Respiratory Exam: Clear to Ausculation Bilateral, NORMAL BREATHING PATTERN - Cardiovascular Exam Cardiovascular Exam: REGULAR RHYTHM, +S1, +S2 - GI/Abdominal Exam GI & Abdominal Exam: Soft, Normal Bowel Sounds. absent: Tenderness - Neurological Exam Neurological Exam: Alert, Awake, Oriented x3 - Psychiatric Exam Psychiatric exam: Normal Affect, Normal Mood - Skin Skin Exam: Dry, Normal Color Assessment and Plan - Assessment and Plan (Free Text) Assessment: #Abdominal pain #Colitis #Chronic diarrhea #Weight loss #Thrombocytopenia #GERD #HTN,HLD,DM PLAN: -Previous records from Dr. Jefferson (GI) - Colonoscopy 2017, Tubular adenoma. Follow up in 2019. -CT reviewed, remarkable for significant Colitis from rectum to right colon, plus inflammation of the duodenum. -Likely infectious vs inflammatory -Continue Rorcephin and flagyl. -c.diff negative -stool culture, O/P -PPI daily -Monitor response to treatment of possible infection, if no response, may consider flex/sig to r/o IBD. -FLD Case discussed with Dr. Ferguson, see attestation. <Sid Ferguson Y - Last Filed: 06/03/18 09:37> Objective - Vital Signs/Intake and Output Vital Signs (last 24 hours): Temp Pulse Resp BP Pulse Ox 97.7 F 71 20 101/63 97 06/03/18 07:58 06/03/18 07:58 06/03/18 07:58 06/03/18 07:58 06/03/18 07:58 - Medications Medications: Current Medications Acetaminophen (Tylenol 325mg Tab) 650 mg PO Q8 PRN PRN Reason: Pain Last Admin: 06/03/18 09:25 Dose: 650 mg Glipizide (Glucotrol Xl) 10 mg PO DAILY [facility] Last Admin: 06/03/18 09:20 Dose: 10 mg Sodium Chloride (Sodium Chloride 0.9%) 1,000 mls @ 100 mls/hr IV .Q10H [facility] Last Admin: 06/03/18 09:28 Dose: 100 mls/hr Ceftriaxone Sodium 1 gm/ (Sodium Chloride) 100 mls @ 100 mls/hr IVPB Q12H [facility]; Protocol Last Admin: 06/03/18 09:26 Dose: 100 mls/hr Metronidazole (Flagyl) 500 mg in 100 mls @ 100 mls/hr IVPB Q8H [facility]; Protocol Last Admin: 06/03/18 08:06 Dose: 100 mls/hr Influenza Virus Vaccine (Flucelvax Quad 5655-3909 Syr) 60 mcg IM .ONCE ONE Stop: 06/04/18 10:01 Vtiyf-3-Gkft Ethyl Esters (Lovaza) 1 gm PO DAILY [facility] Last Admin: 06/03/18 09:20 Dose: 1 gm Pantoprazole Sodium (Protonix Ec Tab) 40 mg PO DAILY [facility] Last Admin: 06/03/18 09:21 Dose: 40 mg Pneumococcal Polyvalent Vaccine (Pneumovax 23 Vaccine) 0.5 ml IM .ONCE ONE Stop: 06/04/18 10:01 Potassium Chloride (K-Dur 20 Meq Er Tab) 40 meq PO BRK [facility] Last Admin: 06/03/18 08:04 Dose: 40 meq - Labs Labs: 06/01/18 16:43 06/01/18 16:43 PT 12.0 SECONDS (9.7-12.2) 06/01/18 16:43 INR 1.1 06/01/18 16:43 APTT 29 SECONDS (21-34) 06/01/18 16:43 Attending/Attestation - Attestation I have personally seen and examined this patient.: Yes I have fully participated in the care of the patient.: Yes I have reviewed all pertinent clinical information, including history, physical exam and plan: Yes Notes (Text): 06/03/18 09:33 I have seen and examined patient with GI fellow. No acute events overnight, he is seen resting in bed comfortably. He reports significant improvement in abdominal pain though diarrhea persists. He denies nausea, vomiting, fever/chills. Tolerating PO liquids without difficulty. Review of vitals from today are normal. DM/HTN GERD Chronic diarrhea Abdominal pain - colitis - Full liquid diet as tolerated - Continue with antibiotic therapy - Follow up ID recommendations - Await results of stool studies, c-difficile negative - Will continue to monitor patient clinical course
[2018-06-03] MEDS: GlipiZIDE 10 mg SR Tab PO SCH (09:20)
[2018-06-03] MEDS: Omega-3-Acid Ethyl Esters 1 GM Cap PO SCH (09:20)
[2018-06-03] MEDS: Pantoprazole 40 mg EC Tab PO SCH (09:21)
--- NOTE | 2018-06-03 09:26 | CP.PCM.PN ---
Subjective - Date & Time of Evaluation Date of Evaluation: 06/03/18 Time of Evaluation: 07:40 - Subjective Subjective: Medicine progress note ( Dr. Margaret Oates's service) Patient was seen and examined at bedside. Patient was resting in bed comfortably in no acute distress. Patient admits to improve symptoms but still with mild epigastric tenderness and diarrhea. Patient denies any symptoms of fever, chills, nausea, vomiting, dizziness, lightheadedness, chest pain, palpitations, shortness of breath. Currently, patient is tolerating clear liquid diet. Objective - Vital Signs/Intake and Output Vital Signs (last 24 hours): Temp Pulse Resp BP Pulse Ox 97.7 F 71 20 101/63 97 06/03/18 07:58 06/03/18 07:58 06/03/18 07:58 06/03/18 07:58 06/03/18 07:58 - Medications Medications: Current Medications Acetaminophen (Tylenol 325mg Tab) 650 mg PO Q8 PRN PRN Reason: Pain Last Admin: 06/01/18 22:37 Dose: 650 mg Glipizide (Glucotrol Xl) 10 mg PO DAILY [facility] Last Admin: 06/02/18 09:36 Dose: 10 mg Sodium Chloride (Sodium Chloride 0.9%) 1,000 mls @ 100 mls/hr IV .Q10H [facility] Last Admin: 06/02/18 21:55 Dose: 100 mls/hr Ceftriaxone Sodium 1 gm/ (Sodium Chloride) 100 mls @ 100 mls/hr IVPB Q12H [facility]; Protocol Last Admin: 06/02/18 21:17 Dose: 100 mls/hr Metronidazole (Flagyl) 500 mg in 100 mls @ 100 mls/hr IVPB Q8H [facility]; Protocol Last Admin: 06/03/18 08:06 Dose: 100 mls/hr Influenza Virus Vaccine (Flucelvax Quad 3501-8633 Syr) 60 mcg IM .ONCE ONE Stop: 06/04/18 10:01 Gcfxo-8-Bpnw Ethyl Esters (Lovaza) 1 gm PO DAILY [facility] Last Admin: 06/02/18 09:36 Dose: 1 gm Pantoprazole Sodium (Protonix Ec Tab) 40 mg PO DAILY [facility] Pneumococcal Polyvalent Vaccine (Pneumovax 23 Vaccine) 0.5 ml IM .ONCE ONE Stop: 01/25/19 10:01 Potassium Chloride (K-Dur 20 Meq Er Tab) 40 meq PO BRK [facility] Last Admin: 06/03/18 08:04 Dose: 40 meq - Labs Labs: 06/01/18 16:43 06/01/18 16:43 PT 12.0 SECONDS (9.7-12.2) 06/01/18 16:43 INR 1.1 06/01/18 16:43 APTT 29 SECONDS (21-34) 06/01/18 16:43 - Constitutional Appears: Non-toxic, No Acute Distress - Head Exam Head Exam: ATRAUMATIC, NORMAL INSPECTION - Eye Exam Eye Exam: EOMI, Normal appearance - ENT Exam ENT Exam: Mucous Membranes Moist - Respiratory Exam Respiratory Exam: Clear to Ausculation Bilateral, NORMAL BREATHING PATTERN. absent: Chest Wall Tenderness, Decreased Breath Sounds, Prolonged Expiratory Phase, Rhonchi, Wheezes, Respiratory Distress - Cardiovascular Exam Cardiovascular Exam: REGULAR RHYTHM, +S1, +S2. absent: Bradycardia, Tachycardia - GI/Abdominal Exam GI & Abdominal Exam: Soft, Tenderness, Normal Bowel Sounds. absent: Distended, Firm, Guarding, Rigid Additional comments: Mild epigastric tenderness - Extremities Exam Extremities Exam: Normal Inspection. absent: Calf Tenderness, Pedal Edema - Neurological Exam Neurological Exam: Alert, Awake, Normal Gait, Oriented x3 - Psychiatric Exam Psychiatric exam: Normal Affect, Normal Mood - Skin Skin Exam: Normal Color Assessment and Plan (1) Pancolitis Assessment & Plan: GI: Dr. 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 Small pelvic free fluid. There are two 3 mm right middle lobe pulmonary nodules. According to the 2017 Fleischner criteria, the patient is low risk, no routine follow-up is recommended. If the patient is high risk, and optional CT at 12 months is recommended. As per EMR documentation/chart review, patient had a colonoscopy which showed Tubular Adenoma and patient is to have a follow up colonoscopy in 2019 Afebrile leukopenia Hepatitis Panel - negative HIV negative C. Diff negative Pending stool studies, Ova and parasite and E. Histolytica Management: * Rocephin 1gm IV Q12H ( Started 06/02/18) * Flagyl 500mg IV Q8H (Started 06/02/18) * NS @ 100cc/hr * Florastor 250mg PO BID Status: Acute (2) Diarrhea Assessment & Plan: 2/2 to pancolitis Afebrile leukopenia Hepatitis Panel - negative HIV negative C. Diff negative Pending stool studies, Ova and parasite and E. Histolytica Status: Acute (3) Diabetes Assessment & Plan: Continue home medication * Glipizide 10mg PO daily * Accuchecks ACHS Status: Acute (4) Hyperlipidemia Assessment & Plan: Continue home medication: * Lovaza 1gm PO daily Status: Acute (5) Hypokalemia Assessment & Plan: Repleted appropriately Monitor with am labs Status: Acute (6) Prophylactic measure Assessment & Plan: GI: Protonix 40mg PO daily DVT: SCDs, ambulating All plans and management discussed with Dr. Margaret Oates Status: Acute
[2018-06-03 11:11] LABS: BASO % 0.4 % (0.0-2.0); EOS % 0.7 % (0.0-4.0); LYMPH % 28.4 % (20.0-40.0); MEAN CORPUSCULAR HEMOGLOBIN 29.4 pg (27.0-31.0); MEAN CORPUSCULAR HGB CONC 32.9 g/dL (33.0-37.0); MEAN PLATELET VOLUME 9.9 fL (7.2-11.7); MONO # 0.5 K/uL (0.0-0.8); MONO % 13.5 % (0.0-10.0); NEUT # 2.1 K/uL (1.8-7.0); RBC 4.43 Mil/uL (4.40-5.90); RED CELL DISTRIBUTION WIDTH 13.9 % (11.5-14.5); WHITE BLOOD COUNT 3.6 K/uL (4.8-10.8)
[2018-06-03 11:17] LABS: MEAN CELL VOLUME 88.9 fL (80.0-94.0)
[2018-06-03 11:28] LABS: ALB/GLOB RATIO 1.4 (1.0-2.1); ALBUMIN 3.5 g/dL (3.5-5.0); ALT/SGPT 24 U/L (21-72); AST/SGOT 34 U/L (17-59); BLOOD UREA NITROGEN 12 mg/dL (9-20); CALCIUM 8.3 mg/dl (8.6-10.4); GFR NON-AFRICAN AMERICAN > 60
[2018-06-03] MEDS: Saccharomyces Boulardi 250 mg Cap PO SCH ×2 (12:04→17:36)
[2018-06-03] MEDS ORDERED: Potassium Chloride 20 mEq ER Tab PO ONE ×2 (14:30→18:30)
--- NOTE | 2018-06-03 17:16 | CP.PCM.PN ---
Subjective - Date & Time of Evaluation Date of Evaluation: 06/03/18 Time of Evaluation: 08:15 - Subjective Subjective: clinically same Objective - Vital Signs/Intake and Output Vital Signs (last 24 hours): Temp Pulse Resp BP Pulse Ox 98.1 F 79 20 121/76 97 06/03/18 15:00 06/03/18 15:00 06/03/18 15:00 06/03/18 15:00 06/03/18 15:00 Intake and Output: 06/03/18 06/03/18 06:59 18:59 Intake Total 800 Balance 800 - Medications Medications: Current Medications Acetaminophen (Tylenol 325mg Tab) 650 mg PO Q8 PRN PRN Reason: Pain Last Admin: 06/03/18 09:25 Dose: 650 mg Glipizide (Glucotrol Xl) 10 mg PO DAILY [facility] Last Admin: 06/03/18 09:20 Dose: 10 mg Sodium Chloride (Sodium Chloride 0.9%) 1,000 mls @ 100 mls/hr IV .Q10H [facility] Last Admin: 06/03/18 13:55 Dose: Not Given Ceftriaxone Sodium 1 gm/ (Sodium Chloride) 100 mls @ 100 mls/hr IVPB Q12H [facility]; Protocol Last Admin: 06/03/18 09:26 Dose: 100 mls/hr Metronidazole (Flagyl) 500 mg in 100 mls @ 100 mls/hr IVPB Q8H [facility]; Protocol Last Admin: 06/03/18 16:17 Dose: 100 mls/hr Influenza Virus Vaccine (Flucelvax Quad 2652-4218 Syr) 60 mcg IM .ONCE ONE Stop: 06/04/18 10:01 Sjevm-0-Dquy Ethyl Esters (Lovaza) 1 gm PO DAILY [facility] Last Admin: 06/03/18 09:20 Dose: 1 gm Pantoprazole Sodium (Protonix Ec Tab) 40 mg PO DAILY [facility] Last Admin: 06/03/18 09:21 Dose: 40 mg Pneumococcal Polyvalent Vaccine (Pneumovax 23 Vaccine) 0.5 ml IM .ONCE ONE Stop: 06/04/18 10:01 Potassium Chloride (K-Dur 20 Meq Er Tab) 20 meq PO ONCE ONE Stop: 06/03/18 18:31 Saccharomyces Boulardii (Florastor) 250 mg PO BID [facility] Last Admin: 06/03/18 12:04 Dose: 250 mg - Labs Labs: 06/03/18 10:54 06/03/18 10:54 PT 12.0 SECONDS (9.7-12.2) 06/01/18 16:43 INR 1.1 06/01/18 16:43 APTT 29 SECONDS (21-34) 06/01/18 16:43 - Constitutional Appears: Well - Head Exam Head Exam: ATRAUMATIC, NORMAL INSPECTION, NORMOCEPHALIC - Eye Exam Eye Exam: EOMI, Normal appearance, PERRL Pupil Exam: NORMAL ACCOMODATION, PERRL - ENT Exam ENT Exam: Mucous Membranes Moist, Normal Exam - Neck Exam Neck Exam: Full ROM, Normal Inspection. absent: Lymphadenopathy - Respiratory Exam Respiratory Exam: Decreased Breath Sounds - Cardiovascular Exam Cardiovascular Exam: REGULAR RHYTHM, +S1, +S2 - GI/Abdominal Exam GI & Abdominal Exam: Soft, Diminished Bowel Sounds - Rectal Exam Rectal Exam: Deferred
[2018-06-04] MEDS: metroNIDAZOLE IV 500 mg/100 ml 500 MG/100 ML BAG IVPB SCH ×2 (00:01→08:05)
[2018-06-04] MEDS: Sodium Chloride 0.9% 1,000 ML IV SCH ×2 (00:04→08:08)
[2018-06-04 00:47] VITALS: O2SAT 96
[2018-06-04 08:00] VITALS: BP 111/69; PULSE 64; TEMP 97.2
[2018-06-04] MEDS ORDERED: Potassium Chloride 20 mEq ER Tab PO SCH (08:00)
[2018-06-04 08:06] LABS: HEMOGLOBIN 13.6 g/dL (12.0-18.0); MEAN CELL VOLUME 89.8 fL (80.0-94.0); MEAN CORPUSCULAR HEMOGLOBIN 30.3 pg (27.0-31.0); MEAN CORPUSCULAR HGB CONC 33.7 g/dL (33.0-37.0); MEAN PLATELET VOLUME 9.9 fL (7.2-11.7); RBC 4.48 Mil/uL (4.40-5.90)
[2018-06-04 08:17] LABS: ALB/GLOB RATIO 1.5 (1.0-2.1); ALBUMIN 3.6 g/dL (3.5-5.0); ALT/SGPT 35 U/L (21-72); AST/SGOT 48 U/L (17-59); BLOOD UREA NITROGEN 11 mg/dL (9-20); CALCIUM 8.3 mg/dl (8.6-10.4); GFR NON-AFRICAN AMERICAN > 60
[2018-06-04] MEDS: GlipiZIDE 10 mg SR Tab PO SCH (09:32)
[2018-06-04] MEDS: Omega-3-Acid Ethyl Esters 1 GM Cap PO SCH (09:32)
[2018-06-04] MEDS: Saccharomyces Boulardi 250 mg Cap PO SCH (09:32)
[2018-06-04] MEDS: Pantoprazole 40 mg EC Tab PO SCH (09:32)
[2018-06-04] MEDS ORDERED: Influenza Vaccine 60 mcg/0.5 mL SYR (4YR UP) IM ONE (10:00)
[2018-06-04] MEDS ORDERED: Pneumococcal 23-Valent Vaccine IM ONE (10:00)
--- NOTE | 2018-06-04 10:08 | CP.PCM.PN ---
<Yonis Whatley - Last Filed: 06/04/18 13:14> Subjective - Date & Time of Evaluation Date of Evaluation: 06/04/18 Time of Evaluation: 10:06 - Subjective Subjective: GI Fellow PGY4, consult note. Patient denies abdominal pain. Still having 8 BMs per 24hrs. No fevers, HDS. Tolerating diet. Objective - Vital Signs/Intake and Output Vital Signs (last 24 hours): Temp Pulse Resp BP Pulse Ox 97.2 F L 64 20 111/69 96 06/04/18 07:00 06/04/18 07:00 06/04/18 07:00 06/04/18 07:00 06/04/18 07:00 Intake and Output: 06/04/18 06/04/18 06:59 18:59 Intake Total 1500 Balance 1500 - Medications Medications: Current Medications Acetaminophen (Tylenol 325mg Tab) 650 mg PO Q8 PRN PRN Reason: Pain Last Admin: 06/03/18 09:25 Dose: 650 mg Glipizide (Glucotrol Xl) 10 mg PO DAILY [facility] Last Admin: 06/04/18 09:32 Dose: 10 mg Sodium Chloride (Sodium Chloride 0.9%) 1,000 mls @ 100 mls/hr IV .Q10H [facility] Last Admin: 06/04/18 08:08 Dose: 100 mls/hr Ceftriaxone Sodium 1 gm/ (Sodium Chloride) 100 mls @ 100 mls/hr IVPB Q12H [facility]; Protocol Last Admin: 06/04/18 09:36 Dose: 100 mls/hr Metronidazole (Flagyl) 500 mg in 100 mls @ 100 mls/hr IVPB Q8H [facility]; Protocol Last Admin: 06/04/18 08:05 Dose: 100 mls/hr [id number] Ethyl Esters (Lovaza) 1 gm PO DAILY [facility] Last Admin: 06/04/18 09:32 Dose: 1 gm Pantoprazole Sodium (Protonix Ec Tab) 40 mg PO DAILY [facility] Last Admin: 06/04/18 09:32 Dose: 40 mg Potassium Chloride (K-Dur 20 Meq Er Tab) 40 meq PO BRK [facility] Last Admin: 06/04/18 08:04 Dose: 40 meq Saccharomyces Boulardii (Florastor) 250 mg PO BID [facility] Last Admin: 06/04/18 09:32 Dose: 250 mg - Labs Labs: 06/04/18 07:51 06/04/18 07:51 PT 12.0 SECONDS (9.7-12.2) 06/01/18 16:43 INR 1.1 06/01/18 16:43 APTT 29 SECONDS (21-34) 06/01/18 16:43 - Constitutional Appears: Well, Non-toxic - Head Exam Head Exam: ATRAUMATIC, NORMAL INSPECTION - Respiratory Exam Respiratory Exam: Clear to Ausculation Bilateral, NORMAL BREATHING PATTERN - Cardiovascular Exam Cardiovascular Exam: REGULAR RHYTHM, +S1, +S2 - GI/Abdominal Exam GI & Abdominal Exam: Soft, Normal Bowel Sounds. absent: Tenderness - Extremities Exam Extremities Exam: Normal Inspection. absent: Pedal Edema - Neurological Exam Neurological Exam: Alert, Awake, Oriented x3 - Psychiatric Exam Psychiatric exam: Normal Affect, Normal Mood - Skin Skin Exam: Normal Color, Warm Assessment and Plan - Assessment and Plan (Free Text) Assessment: #Abdominal pain #Colitis #Chronic diarrhea #Weight loss #Thrombocytopenia #GERD #HTN,HLD,DM PLAN: -Previous records from Dr. Jefferson (GI) - Colonoscopy 2016, Tubular adenoma. Follow up in 2019. -CT reviewed, remarkable for significant Colitis from rectum to right colon, plus inflammation of the duodenum. -Likely infectious vs inflammatory -Continue Rorcephin and flagyl. -c.diff negative -stool culture negative, O/P PENDING -PPI daily -Discussed with Dr. Oates, primary, and would like to have colonoscopy as an outpatient. -Instructed patient to complete Antibiotics at home and to call Dr. Jefferson's office today to set up an appointment early next week. Patient understood plan. Case discussed with Dr. Ferguson, see attestation. <Sid Ferguson - Last Filed: 06/04/18 13:44> Objective - Vital Signs/Intake and Output Vital Signs (last 24 hours): Temp Pulse Resp BP Pulse Ox 97.2 F L 64 20 111/69 96 06/04/18 07:00 06/04/18 07:00 06/04/18 07:00 06/04/18 07:00 06/04/18 07:00 Intake and Output: 06/04/18 06/04/18 06:59 18:59 Intake Total 1500 Balance 1500 - Medications Medications: Current Medications Acetaminophen (Tylenol 325mg Tab) 650 mg PO Q8 PRN PRN Reason: Pain Last Admin: 06/03/18 09:25 Dose: 650 mg Glipizide (Glucotrol Xl) 10 mg PO DAILY [facility] Last Admin: 06/04/18 09:32 Dose: 10 mg Sodium Chloride (Sodium Chloride 0.9%) 1,000 mls @ 100 mls/hr IV .Q10H [facility] Last Admin: 06/04/18 08:08 Dose: 100 mls/hr Ceftriaxone Sodium 1 gm/ (Sodium Chloride) 100 mls @ 100 mls/hr IVPB Q12H [facility]; Protocol Last Admin: 06/04/18 09:36 Dose: 100 mls/hr Metronidazole (Flagyl) 500 mg in 100 mls @ 100 mls/hr IVPB Q8H [facility]; Protocol Last Admin: 06/04/18 08:05 Dose: 100 mls/hr [id number] Ethyl Esters (Lovaza) 1 gm PO DAILY [facility] Last Admin: 06/04/18 09:32 Dose: 1 gm Pantoprazole Sodium (Protonix Ec Tab) 40 mg PO DAILY [facility] Last Admin: 06/04/18 09:32 Dose: 40 mg Potassium Chloride (K-Dur 20 Meq Er Tab) 40 meq PO BRK [facility] Last Admin: 06/04/18 08:04 Dose: 40 meq Saccharomyces Boulardii (Florastor) 250 mg PO BID [facility] Last Admin: 06/04/18 09:32 Dose: 250 mg - Labs Labs: 06/04/18 07:51 06/04/18 07:51 PT 12.0 SECONDS (9.7-12.2) 06/01/18 16:43 INR 1.1 06/01/18 16:43 APTT 29 SECONDS (21-34) 06/01/18 16:43 Attending/Attestation - Attestation I have personally seen and examined this patient.: Yes I have fully participated in the care of the patient.: Yes I have reviewed all pertinent clinical information, including history, physical exam and plan: Yes Notes (Text): 06/04/18 13:42 I have seen and examined patient with GI fellow. No acute events overnight, he reports 3 loose bowel movements today but denies abdominal pain, nausea, vomiting, fever/chills. Tolerating PO liquids without difficulty. Review of vitals from today are normal. Abdominal pain, acute colitis Chronic diarrhea DM / HTN GERD - Advance diet slowly as tolerated - Continue with antibiotic therapy for additional 5 days - Follow up ID recommendations - From GI standpoint ok to discharge patient home wish subsequent outpatient follow up for chronic diarrhea. Will sign off case, please reconsult as necessary, thank you.
--- NOTE | 2018-06-04 14:11 | CP.PCM.PN ---
Subjective - Date & Time of Evaluation Date of Evaluation: 06/04/18 Time of Evaluation: 09:30 - Subjective Subjective: Medicine progress note ( Dr. Margaret Oates's service) Patient was seen and examined at bedside. Patient was resting comfortably in bed in no acute distress. Patient admits to improved symptoms significantly but still with mild symptoms of diarrhea. Patient denies any symptoms of fever, chills, nausea, vomiting, dizziness, lightheadedness, chest pain, palpitations, shortness of breath, abdominal pain, hematochezia or urinary symptoms. Cur rently, patient is tolerating diet. Objective - Vital Signs/Intake and Output Vital Signs (last 24 hours): Temp Pulse Resp BP Pulse Ox 97.2 F L 64 20 111/69 96 06/04/18 07:00 06/04/18 07:00 06/04/18 07:00 06/04/18 07:00 06/04/18 07:00 Intake and Output: 06/04/18 06/04/18 06:59 18:59 Intake Total 1500 Balance 1500 - Medications Medications: Current Medications Acetaminophen (Tylenol 325mg Tab) 650 mg PO Q8 PRN PRN Reason: Pain Last Admin: 06/03/18 09:25 Dose: 650 mg Glipizide (Glucotrol Xl) 10 mg PO DAILY [facility] Last Admin: 06/04/18 09:32 Dose: 10 mg Sodium Chloride (Sodium Chloride 0.9%) 1,000 mls @ 100 mls/hr IV .Q10H [facility] Last Admin: 06/04/18 08:08 Dose: 100 mls/hr Ceftriaxone Sodium 1 gm/ (Sodium Chloride) 100 mls @ 100 mls/hr IVPB Q12H [facility]; Protocol Last Admin: 06/04/18 09:36 Dose: 100 mls/hr Metronidazole (Flagyl) 500 mg in 100 mls @ 100 mls/hr IVPB Q8H [facility]; Protocol Last Admin: 06/04/18 08:05 Dose: 100 mls/hr [id number] Ethyl Esters (Lovaza) 1 gm PO DAILY [facility] Last Admin: 06/04/18 09:32 Dose: 1 gm Pantoprazole Sodium (Protonix Ec Tab) 40 mg PO DAILY [facility] Last Admin: 06/04/18 09:32 Dose: 40 mg Potassium Chloride (K-Dur 20 Meq Er Tab) 40 meq PO BRK [facility] Last Admin: 06/04/18 08:04 Dose: 40 meq Saccharomyces Boulardii (Florastor) 250 mg PO BID [facility] Last Admin: 06/04/18 09:32 Dose: 250 mg - Labs Labs: 06/04/18 07:51 06/04/18 07:51 PT 12.0 SECONDS (9.7-12.2) 06/01/18 16:43 INR 1.1 06/01/18 16:43 APTT 29 SECONDS (21-34) 06/01/18 16:43 - Constitutional Appears: No Acute Distress - Head Exam Head Exam: ATRAUMATIC, NORMAL INSPECTION - Eye Exam Eye Exam: EOMI, Normal appearance - ENT Exam ENT Exam: Mucous Membranes Moist - Respiratory Exam Respiratory Exam: Clear to Ausculation Bilateral, NORMAL BREATHING PATTERN. absent: Prolonged Expiratory Phase, Rales, Rhonchi, Wheezes, Respiratory Distress - Cardiovascular Exam Cardiovascular Exam: REGULAR RHYTHM, +S1, +S2. absent: Tachycardia, Clicks, Di astolic murmur, Murmur - GI/Abdominal Exam GI & Abdominal Exam: Soft, Normal Bowel Sounds. absent: Distended, Firm, Guarding, Rigid, Tenderness - Extremities Exam Extremities Exam: Normal Inspection. absent: Calf Tenderness, Pedal Edema - Back Exam Back Exam: absent: CVA tenderness (L), CVA tenderness (R) - Neurological Exam Neurological Exam: Alert, Awake, Oriented x3 - Psychiatric Exam Psychiatric exam: Normal Affect, Normal Mood - Skin Skin Exam: Normal Color Assessment and Plan (1) Pancolitis Assessment & Plan: GI: Dr. 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 Small pelvic free fluid. There are two 3 mm right middle lobe pulmonary nodules. According to the 2017 Fleischner criteria, the patient is low risk, no routine follow-up is recommended. If the patient is high risk, and optional CT at 12 months is recommended. As per EMR documentation/chart review, patient had a colonoscopy which showed Tubular Adenoma and patient is to have a follow up colonoscopy in 2019 Afebrile leukopenia Hepatitis Panel - negative HIV negative C. Diff negative Stool culture negative for salmonella, shigella or campylobacter Pending Ova and parasite and E. Histolytica Management: * Rocephin 1gm IV Q12H ( Started 06/02/18) * Flagyl 500mg IV Q8H (Started 06/02/18) * NS @ 100cc/hr * Florastor 250mg PO BID Status: Acute (2) Diarrhea Assessment & Plan: 2/2 to pancolitis Afebrile leukopenia Hepatitis Panel - negative HIV negative C. Diff negative Stool culture negative for salmonella, shigella or campylobacter Pending Ova and parasite and E. Histolytica Status: Acute (3) Diabetes Assessment & Plan: Continue home medication * Glipizide 10mg PO daily * Accuchecks ACHS Status: Acute (4) Hyperlipidemia Assessment & Plan: Continue home medication: * Lovaza 1gm PO daily Status: Acute (5) Hypokalemia Assessment & Plan: Resolved Repleted appropriately Status: Acute (6) Prophylactic measure Assessment & Plan: GI: Protonix 40mg PO daily DVT: SCDs, ambulating Please discharge patient home Please continue the following medications: - Ciprofloxacin 500mg PO every 12 hours for 9 days (18 tablets) - Flagyl 500mg PO every 8 hours for 9 days (27 Tablets) Please take yogurt 20-30 minutes after taking the antibiotics or take lactobacillus 1 tablet PO twice a day 20-30 minutes after taking your an tibiotics and 30 days after the completion of your antibiotics Please follow up with your primary care physician, Marcos in 1-[address] Flor Oates 1-3 days Please follow up with Gastroenterology physician, Dr. Jefferson in 1-3 days. It is important that you do so Please resume all your home medications as prescribed by your primary care physician Please continue with hydration, water, orange juice and Gatorade Please return to the hospital if symptoms resume Please take care All plans and management discussed with Dr. Margaret Oates Status: Acute
== END 2018-06-04 16:06 | disposition home or self-care (01) | DRG 387 ==
LOC: C.ER 14:48 → C.3T 18:54
PROVIDERS: ADMIT Internal Medicine Nephrology; ATTEND Internal Medicine Nephrology
DX: K51.00 Ulcerative (chronic) pancolitis without complications (principal); D69.6 Thrombocytopenia, unspecified; E78.00 Pure hypercholesterolemia, unspecified; E11.9 Type 2 diabetes mellitus without complications; E87.6 Hypokalemia; I10 Essential (primary) hypertension; K21.9 Gastro-esophageal reflux disease without esophagitis; R63.4 Abnormal weight loss; D72.819 Decreased white blood cell count, unspecified